=== PATIENT | male | born 1955 | race Caucasian/White ===

== ENCOUNTER 2016-10-08 16:04 | Inpatient (IN) ==
[2016-10-08] MEDS ORDERED: Calcium Gluconate 1,000 MG in D5% in Water 100 ML IVPB ONE (17:06)
[2016-10-08] MEDS ORDERED: Sodium Bicarbonate 50 MEQ/50 ML VIAL IVP ONE (17:08)
[2016-10-08] MEDS ORDERED: Insulin Regular, Human 100 UNIT/ML SQ ONE (17:09)
[2016-10-08] MEDS ORDERED: *HR* Dextrose 50 % in Water (Syg) 50 ML SYRINGE IVP ONE (17:09)
--- NOTE | 2016-10-08 17:12 | Emergency Department Note ---
Disposition Clinical Impression: Hyperkalemia, PEDRITO (acute kidney injury), Metabolic acidosis Diabetes Qualifiers: Diabetes mellitus type: type 2 Diabetes mellitus complication status: with kidney complications Diabetes mellitus complication detail: with chronic kidney disease Diabetes mellitus superintendent greens insulin use: with penitentiary use Chronic kidney disease stage: stage 5, not on chronic dialysis Qualified Code(s): E11.22 - Type 2 diabetes mellitus with diabetic chronic kidney disease Acute on chronic renal failure Qualifiers: Acute renal failure type: unspecified Chronic kidney disease stage: stage 5, not on chronic dialysis Qualified Code(s): N17.9 - Acute kidney failure, unspecified Disposition: Admitted As Inpatient Condition: Serious Time of Disposition: 19:09 General Adult HPI - General Chief complaint: ED Recheck/Abnormal Lab/Rx Stated complaint: Potassium high Time Seen by Provider: 10/08/16 17:01 Source: patient Limitations: no limitations Nursing Notes Reviewed: Yes Vital Signs Reviewed: Yes - History of Present Illness HPI Narrative: Patient sent in by his primary care physician for an increased potassium level. Patient states this is never happened to him before. The only things he can complain of today are a tired feeling. Pain Scale: 3 - Related Data Home Medications Medication Instructions Recorded Confirmed Amlodipine Besylate 10 mg PO DAILY 10/08/16 10/08/16 Atorvastatin [Lipitor] 40 mg PO HS 10/08/16 10/08/16 Cholecalciferol (Vitamin D3) 2,000 unit PO DAILY 10/08/16 10/08/16 [Vitamin D] Exenatide Microspheres [Bydureon] 2 mg SQ QWEEK 10/08/16 10/08/16 Insulin Glargine,Hum.rec.anlog 45 unit SQ QAM 10/08/16 10/08/16 [Basaglar Kwikpen U-100] Lisinopril [Zestril] 5 mg PO DAILY 10/08/16 10/08/16 Metoprolol Succinate 100 mg PO DAILY 10/08/16 10/08/16 Torsemide [Demadex] 10 mg PO DAILY 10/08/16 10/08/16 Ubidecarenone [Co Q-10] 100 mg PO DAILY 10/08/16 10/08/16 hydroCHLOROthiazide 25 mg PO DAILY 10/08/16 10/08/16 [Hydrochlorothiazide] levoFLOXacin [Levofloxacin] 250 mg PO Q48H 10/08/16 10/08/16 Allergies Allergy/AdvReac Type Severity Reaction Status Date / Time No Known Allergies Allergy Verified 10/08/16 16:17 Review of Systems: Patient denies any fevers or chills. He denies any cough. He states he is slightly short of breath but this is been present since he has been diagnosed with pneumonia. It is not changed. He denies any chest pain. He denies any nausea vomiting or diarrhea. He denies any abdominal pain. He denies any urinary symptoms. He denies any hematochezia or melena or hematemesis. He denies any headaches or visual changes. He does report feeling tired today. All systems ED: reviewed and negative except as stated. Past Medical History - Past Medical History Medical history: Reports: diabetes, hyperlipidemia, hypertension, renal disease Psychiatric history: Reports: no psych history - Social History Smoking Status: Former smoker Smokeless Tobacco Status: No Alcohol use: Reports: occasionally Drug use: Reports: none Physical Exam - General Limitations: no limitations General appearance: alert, in no apparent distress - Head Head exam: atraumatic, normocephalic, normal inspection - Eye Eye exam: Present: normal appearance, PERRL, EOMI. Absent: scleral icterus - ENT ENT exam: normal exam, normal oropharynx, mucous membranes moist - Neck Neck exam: Present: normal inspection, full ROM, trachea midline. Absent: tenderness, meningismus, lymphadenopathy - Chest Chest inspection: Present: normal inspection, symmetric chest wall rise - Respiratory Respiratory exam: Present: normal lung sounds bilaterally. Absent: respiratory distress - Cardiovascular Cardiovascular exam: Present: regular rate, normal rhythm, normal heart sounds - Abdominal Exam Abdominal exam: Present: soft, Non-Tender, normal bowel sounds. Absent: tenderness, distention, guarding, rebound, rigidity, organomegaly, Segundo's sign , Rovsing's sign, tenderness at McBurney's Point - Extremities Exam Extremities exam: Present: normal inspection, full ROM, normal capillary refill. Absent: tenderness, pedal edema - Back Exam Back exam: Present: normal inspection, full ROM. Absent: tenderness - Neurological Exam Neurological exam: Present: alert, oriented X3 - Psychiatric Psychiatric exam: Present: normal affect, normal mood - Skin Skin exam: Present: warm, dry, intact, normal color. Absent: rash, cyanosis, diaphoresis, erythema Course Course Narrative: Well-appearing male patient presented to the emergency department after being seen by his primary care physician today and told that his potassium was high. He had routine lab work done and this was found. One week ago he was diagnosed with pneumonia and placed on antibiotics. He states they started with help. He was not admitted for this. He states that over the past week he did have some lower extremity swellings he was placed on Lasix. He states he has been having some issues with his kidney function. So that is being monitored as well. He is not on dialysis. He has never been on dialysis. He is still making urine and has no urinary symptoms. The patient's only complaint today is of a generalized tiredness. He states that he never had a cough with his pneumonia he just had trouble breathing at night. Of note he has some peripheral edema. There is pitting to his lower extremities. Today started him on Lasix over the past week and that is why they are monitoring his creatinine today. It is increased. It was 6 a couple weeks ago and now it is up to 9. He denies any shortness of breath out of the ordinary for him or chest pain at this time. His abdomen is soft and nontender on exam. His lung sounds are clear. Heart sounds are normal. He does have pitting edema to his lower extremities as smoker before. We will admit patient for his hyperkalemia as well as acute on chronic renal failure. We have given him calcium gluconate , insulin, dextrose, Kayexalate, sodium bicarbonate. I have spoken with the hospitalist who is requesting that he be placed in the ICU. I have also spoken with Dr. Pak as the patient has seen Dr. Hanson before. I placed orders that he was requesting as well. Patient is agreeable to admission at this time. - Reevaluation(s) Reevaluation #1: Patient reassessed. He is still resting comfortably in bed. We have admitted patient to the hospital. He has received his calcium gluconate as well as bicarbonate D50 insulin and Kayexalate. He has no complaints at this time. He is agreeable to admission. Time: 18:36 - Consultations Consultation #1: Dr Rice accepted Pt in stable condition. Time: 17:51 Consultation #2: I spoke with Dr. Pak. He is requesting we order a urine sodium and urine creatinine, echo, retroperitoneal ultrasound. I have ordered this for him. Time: 19:38 Vital Signs Temperature 98.2 F 10/08/16 16:17 Pulse Rate 75 10/08/16 16:17 Respiratory Rate 16 10/08/16 16:17 Blood Pressure 187/80 10/08/16 16:17 O2 Sat by Pulse Oximetry 98 10/08/16 16:17 Temperature 97.8 F 10/09/16 00:00 Pulse Rate 87 10/09/16 00:00 Respiratory Rate 16 10/09/16 00:00 Blood Pressure 155/57 10/09/16 00:00 O2 Sat by Pulse Oximetry 98 10/09/16 00:00 Oxygen Delivery Oxygen Delivery Room Air Medical Decision Making - Medical Records Medical records reviewed: Yes I reviewed the patient's medical records. - Lab Data Lab results reviewed: Yes I reviewed the patient's lab results. Result diagrams: 10/08/16 18:38 10/09/16 00:04 Lab Results 10/08/16 10/08/16 10/08/16 Range/Units 18:38 18:38 18:38 WBC 9.8 (4.3-11.1) K/mcL RBC 3.42 L (4.19-5.50) M/mcL Hgb 9.7 L (12.9-16.9) g/dL Hct 29.2 L (37.5-50.1) % MCV 85.4 (83.0-100.0) fL MCH 28.4 (28.0-33.3) pg MCHC 33.2 (31.6-35.5) g/dL RDW 13.6 (11.5-14.5) % Plt Count 262 (140-400) K/mcL MPV 10.8 (9.4-12.4) fL Immature Gran % 0.6 (0-4) % Seg Neutrophils % 69.5 % Lymphocytes % 19.5 % Monocytes % 7.1 % Eosinophils % 3.0 % Basophils % 0.3 % Neutrophils # 6.8 (1.6-8.9) K/mcL Lymphocytes # 1.9 (0.6-4.6) K/mcL Monocytes # 0.7 (0.0-1.3) K/mcL Eosinophils # 0.3 (0.0-0.6) K/mcL Basophils # 0.0 (0.0-0.2) K/mcL PT (9.4-12.1) Seconds INR Sodium (136-145) mEq/L Potassium (3.5-4.5) mEq/L Chloride (98-109) mEq/L Carbon Dioxide (19-29) mEq/L BUN (8-26) mg/dL Creatinine (0.72-1.25) mg/dL Est GFR ( Amer) (> 60) Est GFR (Non-Af Amer) (> 60) BUN/Creatinine Ratio (6-26) Glucose (70-99) mg/dL POC Glucose (58-89) Calculated Osmolality (280-300) Calcium (8.6-10.8) mg/dL Total Bilirubin (0.2-1.2) mg/dL Direct Bilirubin (0.0-0.5) mg/dL Indirect Bilirubin (0.0-1.2) mg/dL AST (5-34) Units/L ALT (0-55) Units/L Alkaline Phosphatase (38-126) Units/L Troponin I 0.21 H* (0-0.03) ng/mL Serum Total Protein (6.0-8.3) g/dL Albumin (3.5-5.0) g/dL Globulin (2.4-3.5) g/dL Albumin/Globulin Ratio (1.1-2.2) Hep Bs Antigen (Nonreactive) Hep Bs Antibody mIU/mL Hepatitis C Ab Screen (Nonreactive) Blood Type A POSITIVE Antibody Screen NEGATIVE 10/08/16 10/08/16 10/08/16 Range/Units 18:38 18:38 18:38 WBC (4.3-11.1) K/mcL RBC (4.19-5.50) M/mcL Hgb (12.9-16.9) g/dL Hct (37.5-50.1) % MCV (83.0-100.0) fL MCH (28.0-33.3) pg MCHC (31.6-35.5) g/dL RDW (11.5-14.5) % Plt Count (140-400) K/mcL MPV (9.4-12.4) fL Immature Gran % (0-4) % Seg Neutrophils % % Lymphocytes % % Monocytes % % Eosinophils % % Basophils % % Neutrophils # (1.6-8.9) K/mcL Lymphocytes # (0.6-4.6) K/mcL Monocytes # (0.0-1.3) K/mcL Eosinophils # (0.0-0.6) K/mcL Basophils # (0.0-0.2) K/mcL PT 12.1 (9.4-12.1) Seconds INR 1.1 Sodium 143 (136-145) mEq/L Potassium 5.6 H D (3.5-4.5) mEq/L Chloride 113 H (98-109) mEq/L Carbon Dioxide 20 (19-29) mEq/L BUN 114 H (8-26) mg/dL Creatinine 9.70 H (0.72-1.25) mg/dL Est GFR ( Amer) 7 L (> 60) Est GFR (Non-Af Amer) 6 L (> 60) BUN/Creatinine Ratio 12 (6-26) Glucose 225 H (70-99) mg/dL POC Glucose (58-89) Calculated Osmolality 339 H (280-300) Calcium 9.3 (8.6-10.8) mg/dL Total Bilirubin 0.4 (0.2-1.2) mg/dL Direct Bilirubin < 0.1 (0.0-0.5) mg/dL Indirect Bilirubin 0.3 (0.0-1.2) mg/dL AST 18 (5-34) Units/L ALT 23 (0-55) Units/L Alkaline Phosphatase 87 (38-126) Units/L Troponin I (0-0.03) ng/mL Serum Total Protein 6.1 (6.0-8.3) g/dL Albumin 2.5 L (3.5-5.0) g/dL Globulin 3.6 H (2.4-3.5) g/dL Albumin/Globulin Ratio 0.7 L (1.1-2.2) Hep Bs Antigen Nonreactive (Nonreactive) Hep Bs Antibody 0.15 mIU/mL Hepatitis C Ab Screen Nonreactive (Nonreactive) Blood Type Antibody Screen 10/08/16 Range/Units 19:35 WBC (4.3-11.1) K/mcL RBC (4.19-5.50) M/mcL Hgb (12.9-16.9) g/dL Hct (37.5-50.1) % MCV (83.0-100.0) fL MCH (28.0-33.3) pg MCHC (31.6-35.5) g/dL RDW (11.5-14.5) % Plt Count (140-400) K/mcL MPV (9.4-12.4) fL Immature Gran % (0-4) % Seg Neutrophils % % Lymphocytes % % Monocytes % % Eosinophils % % Basophils % % Neutrophils # (1.6-8.9) K/mcL Lymphocytes # (0.6-4.6) K/mcL Monocytes # (0.0-1.3) K/mcL Eosinophils # (0.0-0.6) K/mcL Basophils # (0.0-0.2) K/mcL PT (9.4-12.1) Seconds INR Sodium (136-145) mEq/L Potassium (3.5-4.5) mEq/L Chloride (98-109) mEq/L Carbon Dioxide (19-29) mEq/L BUN (8-26) mg/dL Creatinine (0.72-1.25) mg/dL Est GFR ( Amer) (> 60) Est GFR (Non-Af Amer) (> 60) BUN/Creatinine Ratio (6-26) Glucose (70-99) mg/dL POC Glucose 107 H (58-89) Calculated Osmolality (280-300) Calcium (8.6-10.8) mg/dL Total Bilirubin (0.2-1.2) mg/dL Direct Bilirubin (0.0-0.5) mg/dL Indirect Bilirubin (0.0-1.2) mg/dL AST (5-34) Units/L ALT (0-55) Units/L Alkaline Phosphatase (38-126) Units/L Troponin I (0-0.03) ng/mL Serum Total Protein (6.0-8.3) g/dL Albumin (3.5-5.0) g/dL Globulin (2.4-3.5) g/dL Albumin/Globulin Ratio (1.1-2.2) Hep Bs Antigen (Nonreactive) Hep Bs Antibody mIU/mL Hepatitis C Ab Screen (Nonreactive) Blood Type Antibody Screen - EKG Data EKG #1 EKG attestation: Yes I reviewed and interpreted this EKG. EKG results narrative: EKG time 1630. Ventricular rate is 72. Normal sinus rhythm. IL interval is 176. QRS duration is 163 QT is 386. QT is 411. No signs of acute ischemia. There are peaked T waves in leads V2 V3 and V4. EKG #2 EKG attestation: Yes I reviewed and interpreted this EKG. EKG results narrative: Repeat EKG 1832. This was taken after calcium gluconate was given. Normal sinus rhythm at a rate of 79. IL interval is 212. Respirations 25. QT is 379. QTC is 414. There are no changes from previous EKG done earlier today. Attestation Statement - Attestation Attestation: I personally interviewed and examined this patient and my medical decision- making was reviewed with the ED Resident Physician, Dr. Tovar I agree with the documented findings, disposition and treatment plan as described except to the extent set forth below. Patient is a 61-year-old white male with a history of renal insufficiency secondary to diabetes. Patient was contacted by his family doctor and sent in for abnormal labs. Patient was reported to have an elevated potassium as well as worsening renal function with his BUN and creatinine increasing. Patient states that about a week ago he was diagnosed with pneumonia and started on antibiotics for which he feels significantly better home also at that time he was having some lower extremity edema and was started on Lasix. His family doctor was monitoring his blood work and kidney function due to the new Lasix prescription and had labs drawn earlier today. He was contacted and told that his potassium was significantly elevated and that he should go directly to the emergency department. Patient's renal function has increased his serum creatinine has gone from 5.5 to approximately 9 today with an elevation in his BUN to 111. Potassium was 6.8. Patient is asymptomatic here in the emergency department with the exception of stating that he is just been feeling weak overall denies any cough or shortness of breath, no chest pain or pressure, no palpitations, no lightheadedness or syncope. Patient denies any abdominal pain , no history of fluid loss with nausea vomiting or diarrhea and no urinary symptoms. Patient states he does still make urine, he is currently not a dialysis patient and although they have been discussing the potential for starting this for him. Patient has been seeing a set o type operator in regards to his worsening renal status. Patient had an EKG on arrival to the ER showing some peaked T waves. Patient was immediately placed on a electronics supervisor and continuous pulse ox IV saline well was established and he was administered calcium gluconate IV, sodium bicarbonate for his metabolic acidosis, insulin and glucose as well as Kayexalate; all to treat his hyperkalemia. We also repeated a chest x-ray with a recent diagnosis of pneumonia and chest x-ray today is within normal limits. Patient is otherwise hemodynamically stable and asymptomatic resting comfortably at bedside with family. I agree with patient's physical exam findings as documented. We discussed lab results with family and they understand the need for admission at this time. We did contact nephrology consult them from the emergency department and patient was admitted to the hospitalist service for further evaluation and management. We did repeat an EKG which shows a stable T waves no worsening signs of increasing potassium.
[2016-10-08 18:46] LABS: Basophils % 0.3 %; Eosinophils # 0.3 K/mcL (0.0-0.6); Hematocrit 29.2 % (37.5-50.1); Hemoglobin 9.7 g/dL (12.9-16.9); Immature Granulocytes % 0.6 % (0-4); Lymphocytes # 1.9 K/mcL (0.6-4.6); Lymphocytes % 19.5 %; Mean Corpuscular HGB Conc 33.2 g/dL (31.6-35.5); Mean Corpuscular Hemoglobin 28.4 pg (28.0-33.3); Mean Corpuscular Volume 85.4 fL (83.0-100.0); Mean Platelet Volume 10.8 fL (9.4-12.4); Monocytes # 0.7 K/mcL (0.0-1.3); Monocytes % 7.1 %; Neutrophils # 6.8 K/mcL (1.6-8.9); Platelet Count 262 K/mcL (140-400); Red Blood Count 3.42 M/mcL (4.19-5.50); Red Cell Distribution Width 13.6 % (11.5-14.5); Segmented Neutrophils % 69.5 %
[2016-10-08 18:51] LABS: INR 1.1; Prothrombin Time 12.1 Seconds (9.4-12.1)
[2016-10-08 19:08] LABS: Alanine Aminotransferase 23 Units/L (0-55); Albumin 2.5 g/dL (3.5-5.0); Albumin/Globulin Ratio 0.7 (1.1-2.2); Alkaline Phosphatase 87 Units/L (38-126); Aspartate Amino Transferase 18 Units/L (5-34); BUN/Creatinine Ratio 12 (6-26); Bilirubin,Indirect 0.3 mg/dL (0.0-1.2); Bilirubin,Total 0.4 mg/dL (0.2-1.2); Blood Urea Nitrogen 114 mg/dL (8-26); Calcium 9.3 mg/dL (8.6-10.8); Carbon Dioxide 20 mEq/L (19-29); Chloride 113 mEq/L (98-109); Globulin 3.6 g/dL (2.4-3.5); Glucose 225 mg/dL (70-99); Osmolality,Calculated 339 (280-300); Sodium 143 mEq/L (136-145); Total Protein 6.1 g/dL (6.0-8.3); eGFR For African Americans 7 (> 60); eGFR For Non-African Americans 6 (> 60)
[2016-10-08 19:10] LABS: Bilirubin,Direct < 0.1 mg/dL (0.0-0.5); Potassium 5.6 mEq/L (3.5-4.5)
[2016-10-08 19:28] LABS: Hepatitis B Surface Antibody 0.15 mIU/mL; Hepatitis B Surface Antigen Nonreactive (Nonreactive); Hepatitis C Virus Antibody Nonreactive (Nonreactive)
[2016-10-08] MEDS ORDERED: Naloxone 0.4 MG/ML INJ IVP PRN (19:43)
[2016-10-08] MEDS ORDERED: Ondansetron 4 MG/2 ML VIAL IVP PRN (19:43)
[2016-10-08] MEDS ORDERED: Dextrose Gel 15 GM PO PRN ×2 (19:53)
[2016-10-08] MEDS ORDERED: D5% in Water 1,000 ML IVC PRN (19:53)
[2016-10-08] MEDS ORDERED: *HR* Dextrose 50 % in Water (Syg) 50 ML SYRINGE IVP PRN (19:53)
--- NOTE | 2016-10-08 20:24 | Internal Med History&Physical ---
Date of Encounter: 10/08/16 Time of Encounter: 19:45 Assessment and Plan (1) Hyperkalemia Current visit: Yes Status: Acute Admitted for hyperkalemic emergency Initial EKG showed peaked T waves patient received Calcium Gluconate, Bicarb, Dextrose, Insulin, Kayexalate Hyperkalemia improving resolution of peaked T waves at this time clinically asymptomatic will hold home dose of HCTZ, Lisinopril, Toresemide given renal function noted to have acute on chronic renal failure. Patient saw his poker supervisor two months ago and has a follow up next month Dr. Pak aware of the patient and will see in am continue tele monitoring will closely monitor K level (2) Acute on chronic renal failure Current visit: Yes Status: Acute patient will likely be started on HD in am follow up nephrology consultation Qualifiers: Acute renal failure type: unspecified Chronic kidney disease stage: stage 5 , not on chronic dialysis Qualified Code(s): N17.9 - Acute kidney failure, unspecified; N18.5 - Chronic kidney disease, stage 5 (3) Diabetes mellitus Current visit: Yes Status: Chronic continue home insulin dosage added sliding scale insulin algorithm monitor fingerstick and blood glucose accuchecks ACHS ADA diet Qualifiers: Diabetes mellitus type: type 2 Diabetes mellitus complication status: with kidney complications Diabetes mellitus complication detail: with chronic kidney disease Diabetes mellitus fdc insulin use: with fdc use Chronic kidney disease stage: stage 5, not on chronic dialysis Qualified Code( s): E11.22 - Type 2 diabetes mellitus with diabetic chronic kidney disease; N18.5 - Chronic kidney disease, stage 5; Z79.4 - long-term (current) use of insulin (4) Hypertension Current visit: Yes Status: Chronic Noted to be hypertensive but clinically asymptomatic reports of taking home dose of Amlodipine at bedtime, will resume added hydralazine 10mg IV q6h PRN SBP>150 will closely monitor BP holding home dose of Lisinopril, Toresemide, and HCTZ given renal function Qualifiers: Hypertension type: essential hypertension Qualified Code(s): I10 - Essential (primary) hypertension (5) Obesity Current visit: Yes Status: Chronic Qualifiers: Obesity type: unspecified obesity type Obesity severity: non-morbid Qualified Code(s): E66.9 - Obesity, unspecified (6) Peripheral edema Current visit: Yes Status: Acute Bilateral Pitting edema no history of CHF reported will obtain 2D echo initiate diuretic therapy once renal function permits No respiratory distress reported at this time (7) DVT prophylaxis Current visit: Yes Status: Acute Heparin SQ (8) Elevated troponin Current visit: Yes Status: Acute Likely demand ischemia in the setting of Acute renal failure and hypertensive no ST segment changes reported clinically asymptomatic will trend serial TNI f/u 2D echo Internal Medicine - H&P: HPI Chief complaint: sent by PCP for hyperkalemia Admitted From: Home Plans for Post Hospital Care: Home History of present illness: Mr. Walker is a 61 year old male with PMH of DM, HTN, HLD, CKD stage 4 who was sent by PCP for management of hyperkalemia. Patient reported of having generalized weakness and minor cramping in her calves but no other discomfort. Upon arrival to the ER, he was noted to have K of 6.8 along with peaked T waves on EKG. He received calcium gluconate, insulin, sodium bicarbonate, dextrose, and kayexalate in the ER. Repeat K is down to 5.6. He is clinically asymptomatic and denies any distress at this time. Patient seen with family present at bedside. He denies any chest pain, palpitations, shortness of breath , abd pain, n/v, fever, or chills. Denies any muscle cramping at this time. Denies any similar symptoms in the past. Patient's primary poker supervisor is Dr. Hanson, Dr. Pak is aware of the patient and as per his request patient has received NaBicarb, Calcium gluconate, insulin , kayexalate, dextrose. Past Med Surg Social Fam HX - Past Medical History Medical history: diabetes, hyperlipidemia, hypertension, renal disease Psychiatric history: no psych history - Social History Smoking Status: Former smoker Smokeless Tobacco Status: No Alcohol use: occasionally Drug use: none Internal Medicine - H&P: Meds Amlodipine Besylate 10 mg PO DAILY 10/08/16 [History] Atorvastatin [Lipitor] 40 mg PO HS 10/08/16 [History] Cholecalciferol (Vitamin D3) [Vitamin D] 2,000 unit PO DAILY 10/08/16 [History] Exenatide Microspheres [Bydureon] 2 mg SQ QWEEK 10/08/16 [History] Insulin Glargine,Hum.rec.anlog [Paulette Vargas U-100] 45 unit SQ QAM 10/08/16 [History] Lisinopril [Zestril] 5 mg PO DAILY 10/08/16 [History] Metoprolol Succinate 100 mg PO DAILY 10/08/16 [History] Torsemide [Demadex] 10 mg PO DAILY 10/08/16 [History] Ubidecarenone [Co Q-10] 100 mg PO DAILY 10/08/16 [History] hydroCHLOROthiazide [Hydrochlorothiazide] 25 mg PO DAILY 10/08/16 [History] levoFLOXacin [Levofloxacin] 250 mg PO Q48H 10/08/16 [History] Allergies No Known Allergies Allergy (Verified 10/08/16 16:17) All Systems PM: A 10-system review of systems was performed and is negative for pertinent findings except as documented above in the HPI. - Constitutional Constitutional: as per HPI - Constitutional Vitals: Temp Pulse Resp BP Pulse Ox 98.2 F 76 16 172/84 98 10/08/16 16:17 10/08/16 18:42 10/08/16 19:22 10/08/16 19:22 10/08/16 18:42 General appearance: Present: cooperative, A&O X 3, pleasant, no acute distress, obese, answers questions appropriately - Head Head exam: Present: atraumatic, normocephalic - Eye Eye exam: Present: normal appearance, conjuntiva pink, sclera anicteric - Respiratory Respiratory exam: Present: CTAB. Absent: respiratory distress, wheezes - Cardiovascular Cardiovascular exam: Present: RRR, +S1, +S2. Absent: diastolic murmur, gallop, rubs, systolic murmur - GI/Abdominal GI/Abdominal exam: Present: distended (obese), normal bowel sounds, soft, no peritoneal signs. Absent: tenderness - Extremities Exam Extremities exam: Present: pedal edema (1+ pitting edema in bilateral lower extremities), warm, radial pulses palpable and symetrical. Absent: calf tenderness - Neurological Exam Neurological exam: Present: alert, oriented X3 - Psychiatric Psychiatric exam: Present: normal affect, normal mood Internal Med - H&P Results - Labs CBC & Chem 7: 10/08/16 18:38 10/08/16 18:38 Labs: Short CBC 10/08/16 Range/Units 18:38 WBC 9.8 (4.3-11.1) K/mcL Hgb 9.7 L (12.9-16.9) g/dL Hct 29.2 L (37.5-50.1) % Plt Count 262 (140-400) K/mcL Neutrophils # 6.8 (1.6-8.9) K/mcL BMP 10/08/16 18:38 Sodium 143 Potassium 5.6 H D Chloride 113 H Carbon Dioxide 20 BUN 114 H Creatinine 9.70 H Glucose 225 H Calcium 9.3 Cardiac Enzymes 10/08/16 Range/Units 18:38 Troponin I 0.21 H* (0-0.03) ng/mL Liver Function 10/08/16 Range/Units 18:38 Total Bilirubin 0.4 (0.2-1.2) mg/dL Direct Bilirubin < 0.1 (0.0-0.5) mg/dL AST 18 (5-34) Units/L ALT 23 (0-55) Units/L Alkaline Phosphatase 87 (38-126) Units/L Albumin 2.5 L (3.5-5.0) g/dL
[2016-10-08] MEDS: amLODIPine 5 MG TABLET PO SCH (20:31)
[2016-10-08] MEDS: Insulin LISPRO 300 UNITS/3 ML VIAL SQ SCH (20:32)
[2016-10-08] MEDS: Cholecalciferol (D-3) 1,000 UNIT TABLET PO SCH (21:04)
[2016-10-09 00:25] LABS: Calcium 8.6 mg/dL (8.6-10.8); Potassium 4.8 mEq/L (3.5-4.5)
[2016-10-09 05:56] LABS: Basophils % 0.1 %; Eosinophils # 0.2 K/mcL (0.0-0.6); Eosinophils % 2.4 %; Hematocrit 24.9 % (37.5-50.1); Immature Granulocytes % 0.4 % (0-4); Lymphocytes # 1.8 K/mcL (0.6-4.6); Mean Corpuscular HGB Conc 32.5 g/dL (31.6-35.5); Mean Corpuscular Hemoglobin 28.4 pg (28.0-33.3); Mean Corpuscular Volume 87.4 fL (83.0-100.0); Mean Platelet Volume 10.3 fL (9.4-12.4); Monocytes # 0.8 K/mcL (0.0-1.3); Monocytes % 8.1 %; Neutrophils # 6.9 K/mcL (1.6-8.9); Platelet Count 219 K/mcL (140-400); Red Blood Count 2.85 M/mcL (4.19-5.50); Red Cell Distribution Width 13.7 % (11.5-14.5)
[2016-10-09 05:57] LABS: Hemoglobin 8.1 g/dL (12.9-16.9)
[2016-10-09] MEDS: *HR* Heparin 5,000 UNIT/ML VIAL SQ SCH ×2 (06:07→17:54)
[2016-10-09 06:08] LABS: Magnesium 1.5 mg/dL (1.6-2.6); Phosphorous 8.6 mg/dL (2.3-4.7)
--- NOTE | 2016-10-09 08:25 | Internal Med Progress Note ---
Date of Encounter: 10/09/16 Time of Encounter: 08:22 - Assessment and plan (1) Hyperkalemia Current Visit: Yes Status: Acute Assessment and plan: Likely secondary to acute on chronic renal failure. He received treatment with calcium gluconate, IV bicarbonate, insulin and dextrose and Kayexalate. Potassium this morning is 5.0. Repeat EKG late last night shows resolution of peaked T waves. We will continue to monitor potassium level. We will start patient on a low potassium diet. Hold lisinopril. Consult nephrology. (2) Metabolic acidosis Current Visit: Yes Status: Acute Assessment and plan: Likely secondary to acute and chronic renal failure. He received IV bicarbonate. We will consult nephrology, at this time he does not require any continued IV bicarbonate. (3) Acute on chronic renal failure Current Visit: Yes Status: Acute Assessment and plan: Per medical records review baseline creatinine in June 2016 was 6. He follows with outpatient nephrology who has discussed with him the possibility of hemodialysis and he is registered for kidney transplant in [place]. We will consult nephrology. He does not have any evidence of uremia or fluid overload. Kidney ultrasound shows no hydronephrosis. Qualifiers: Acute renal failure type: unspecified Chronic kidney disease stage: stage 5 , not on chronic dialysis Qualified Code(s): N17.9 - Acute kidney failure, unspecified; N18.5 - Chronic kidney disease, stage 5 (4) Diabetes mellitus Current Visit: Yes Status: Chronic Assessment and plan: Glucose level was down to 57 earlier this morning. He takes insulin Lantus at home. At this point I will decrease the Levemir dosing to 50% of his home dose due to worsening renal failure and hyperglycemia. Start insulin sliding scale. Check blood glucose 4 times daily. 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 Continue treatment with amlodipine and metoprolol. Add IV hydralazine as needed for uncontrolled hypertension. Qualifiers: Hypertension type: essential hypertension Qualified Code(s): I10 - Essential (primary) hypertension (6) Peripheral edema Current Visit: Yes Status: Acute Assessment and plan: Follow-up echocardiogram. (7) DVT prophylaxis Current Visit: Yes Status: Acute Assessment and plan: Renally adjusted subcutaneous heparin for prophylaxis. (8) Elevated troponin Current Visit: Yes Status: Acute Assessment and plan: Likely secondary to chronic renal failure. Patient denies chest pain. Troponin elevation is flat and adynamic. - Subjective Interval history: 10/09/2016: The patient was sent by PCP for evaluation and management of elevated potassium. He denies any symptoms prior to admission. Currently remains asymptomatic. His potassium checked outpatient was 6.9. He has a history of chronic kidney disease. Upon initial evaluation his potassium was 6.8 and EKG demonstrated peaked T waves. He received treatment for hyperkalemia. He states that he continues to urinate and he did not notice any changes in urination. He denies chest pain shortness of breath. He has chronic lower extremity swelling which he says is improved from his baseline. - Constitutional Vitals: Temp Pulse Resp BP Pulse Ox 98.1 F 84 20 141/62 97 10/09/16 07:20 10/09/16 08:00 10/09/16 08:00 10/09/16 08:00 10/09/16 08:00 General appearance: Present: cooperative, A&O X 3, pleasant, no acute distress, obese, answers questions appropriately - Eye Eye exam: Present: PERRL, conjuntiva pink, sclera anicteric Pupils: Present: PERRL - Respiratory Respiratory exam: Present: CTAB. Absent: accessory muscle use, rales, rhonchi, wheezes - Cardiovascular Cardiovascular exam: Present: RRR, +S1, +S2, systolic murmur. Absent: diastolic murmur, gallop, rubs - GI/Abdominal GI/Abdominal exam: Present: normal bowel sounds, soft, no peritoneal signs. Absent: distended, tenderness - Extremities Exam Extremities exam: Present: pedal edema (2+ lower extremity pitting edema), warm , radial pulses palpable and symetrical. Absent: calf tenderness, cyanotic - Neurological Exam Neurological exam: Present: CN II-XII intact, oriented X3, no focal deficits. Absent: pronater drift, facial droop, speech deficit - Skin Skin exam: Present: dry, intact Internal Medicine: Result - Labs CBC & Chem 7: 10/09/16 05:48 10/09/16 05:48 Labs: Short CBC 10/09/16 Range/Units 05:48 WBC 9.7 (4.3-11.1) K/mcL Hgb 8.1 L D (12.9-16.9) g/dL Hct 24.9 L (37.5-50.1) % Plt Count 219 (140-400) K/mcL Neutrophils # 6.9 (1.6-8.9) K/mcL BMP 10/09/16 10/09/16 00:04 05:48 Sodium 141 140 Potassium 4.8 H 5.0 H Chloride 113 H 114 H Carbon Dioxide 17 L 17 L BUN 109 H 110 H Creatinine 9.43 H 9.25 H Glucose 57 L 126 H Calcium 8.6 8.0 L Cardiac Enzymes 10/09/16 10/09/16 Range/Units 00:04 05:48 Troponin I 0.24 H* 0.23 H* (0-0.03) ng/mL - ABG Interpretation ABG results: PT/INR, D-dimer PT 12.1 Seconds (9.4-12.1) 10/08/16 18:38 - EKG Interpretation EKG Interpreted by Myself: Yes EKG shows normal: sinus rhythm (72 bpm with peaked T waves and QRS duration of 106.), axis - Impressions Impressions Retroperitoneum Ultrasound 10/08/16 21:30 IMPRESSION: 1. No hydronephrosis. 2. Increased cortical echogenicity is consistent with chronic medical renal disease. 3. The echogenic foci in the kidneys may represent tiny calculi or foci of fat. 4. Postvoid bladder volume is 101 mL. D/ / Tung Conte MD / Tung Conte MD Interpreting Provider: Tung Conte MD Repeat EKG on 10/08/2016 at 8:26 PM reveals normal sinus rhythm 77 bpm QRS duration 108 ms. Peaked T waves have resolved. Consult Discharge Plan - Plan Referrals: Fritz Khan MD [Primary Care Provider] -
[2016-10-09] MEDS: Metoprolol XL (24 HR) Succ 50 MG TAB.ER.24H PO SCH (08:29)
[2016-10-09] MEDS: Insulin LISPRO 300 UNITS/3 ML VIAL SQ SCH ×4 (08:29→21:05)
[2016-10-09] MEDS: (Ubidecarenone [Co Q-10] 100 MG) PO SCH (08:33)
[2016-10-09] MEDS ORDERED: Cholecalciferol (D-3) 1,000 UNIT TABLET PO SCH (09:00)
[2016-10-09] MEDS ORDERED: hydroCHLOROthiazide 25 MG TABLET PO SCH (09:00)
[2016-10-09] MEDS ORDERED: Torsemide 20 MG TABLET PO SCH (09:00)
[2016-10-09] MEDS ORDERED: Insulin DETEMIR 100 UNIT/ML X5UNITS SQ SCH (09:00)
[2016-10-09] MEDS ORDERED: amLODIPine 5 MG TABLET PO SCH (09:00)
--- NOTE | 2016-10-09 09:14 | Nephrology Consult Note ---
Date of Encounter: 10/09/16 Time of Encounter: 09:13 Assessment and Plan (1) ESRD (end stage renal disease) Current Visit: Yes Status: Acute Per Dr. Escalera's note patient has biopsy proven diabetic nephropathy that has been progressing. He is now at a point that he requires renal replacement therapy. We will place order for a tunneled dialysis catheter and initiate dialysis today for hyperkalemia, metabolic acidosis, and volume overload. Social work consult has been placed for outpatient dialysis chair. I have contacted the peritoneal dialysis nurse to talk to the patient about the feasibility of peritoneal dialysis. Nephrocaps been initiated. Patient is replaced on a renal diet. Adjust medications for renal function. (2) Hyperparathyroidism Current Visit: Yes Status: Acute Patient on vitamin D3, we will start calcitriol and attempt to get phosphorus in the normal range. (3) Hyperkalemia Current Visit: Yes Status: Acute Renal diet, and dialysis. He responded to medical management overnight. (4) Metabolic acidosis Current Visit: Yes Status: Acute Should improve with dialysis. (5) Diabetes mellitus Current Visit: Yes Status: Chronic Defer management to primary care team. 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 Should improve with UF. Qualifiers: Hypertension type: essential hypertension Qualified Code(s): I10 - Essential (primary) hypertension (7) Obesity Current Visit: Yes Status: Chronic Outpatient management. Qualifiers: Obesity type: unspecified obesity type Obesity severity: non-morbid Qualified Code(s): E66.9 - Obesity, unspecified (8) Anemia Current Visit: Yes Status: Acute Vitamin B12, folic acid, and iron level have been ordered. We will initiate Aranesp. Monitor for bleeding. Qualifiers: Qualified Code(s): D64.9 - Anemia, unspecified History of Present Illness - Reason for Consult Consult date: 10/09/16 end stage renal disease, hyperkalemia, metabolic acidosis, proteinuria - Chief Complaint ESRD - History of Present Illness Mr. Walker is a 61 yo man with CKD Stage [address] Escalera who presents after his PCP discovered worsening renal failure and hyperkalemia. The patient reports he been in his usual state of health. He works 6 12 hour days a week and has not noticed nausea, vomiting, or a metallic taste his food. He has noticed increased fatigue, increased shortness of breath, and increased heaviness in his lower extremities with exertion. He went to his primary care provider and apparently had labs drawn which revealed a elevated potassium. He went to the ER and was found that his renal function had worsened. He was initiated and his potassium was managed medically. After speaking with the patient he is agreeable to initiating hemodialysis although he is interested in peritoneal dialysis as well. Reviewing outpatient records apparently he was referred to receive a transplant at the [facility] in [place] , however he has not filled out paperwork as of yet. Past Med Surg Social Fam HX - Past Medical History Medical history: diabetes, hyperlipidemia, hypertension, renal disease Psychiatric history: no psych history - Social History Smoking Status: Former smoker Smokeless Tobacco Status: No Alcohol use: occasionally Drug use: none Medications and Allergies Amlodipine Besylate 10 mg PO DAILY 10/08/16 [History] Atorvastatin [Lipitor] 40 mg PO HS 10/08/16 [History] Cholecalciferol (Vitamin D3) [Vitamin D] 2,000 unit PO DAILY 10/08/16 [History] Exenatide Microspheres [Bydureon] 2 mg SQ QWEEK 10/08/16 [History] Insulin Glargine,Hum.rec.anlog [Basaglar Kwikpen U-100] 45 unit SQ QAM 10/08/16 [History] Lisinopril [Zestril] 5 mg PO DAILY 10/08/16 [History] Metoprolol Succinate 100 mg PO DAILY 10/08/16 [History] Torsemide [Demadex] 10 mg PO DAILY 10/08/16 [History] Ubidecarenone [Co Q-10] 100 mg PO DAILY 10/08/16 [History] hydroCHLOROthiazide [Hydrochlorothiazide] 25 mg PO DAILY 10/08/16 [History] levoFLOXacin [Levofloxacin] 250 mg PO Q48H 10/08/16 [History] Allergies No Known Allergies Allergy (Verified 10/08/16 16:17) Review of Systems All Systems: reviewed and no additional remarkable complaints except as stated ( As documented in history of present illness) Exam - Vital Signs Vital signs: Initial Vital Signs Temp Pulse Resp BP Pulse Ox 98.2 F 75 16 187/80 98 10/08/16 16:17 10/08/16 16:17 10/08/16 16:17 10/08/16 16:17 10/08/16 16:17 Vital Signs - Last 8 Hours Temp Pulse Resp BP Pulse Ox 10/09/16 08:00 84 20 141/62 97 10/09/16 07:20 98.1 F 10/09/16 06:00 78 15 173/72 97 10/09/16 05:00 73 15 121/58 97 10/09/16 04:00 98.0 F 79 14 157/71 97 10/09/16 03:20 76 10/09/16 03:00 76 14 155/87 97 10/09/16 02:00 80 14 156/71 97 Intake and Output 10/08/16 10/09/16 10/09/16 23:59 07:59 15:59 Intake Total 1999 Output Total 500 / 500 Balance 1500 / 1500 Intake: Oral 1999 Output: Catheter 500 / 500 Other: Stool Size Large Stool Consistency liquid # Bowel Movements 1 Blood Glucose* 157 - General Appearance General appearance: well-developed, well-nourished EENT: ATNC Neck: supple Additional Comments: Faint crackles in the bilateral bases otherwise clear to auscultation Cardiology: no rub, edema (3+ in bilateral lower extremities), regular rate, regular rhythm Gastrointestinal: normoactive bowel sounds, no tenderness Integumentary: warm and dry Neurologic: alert and oriented x3 Musculoskeletal: no cyanosis Psychiatric: mood/affect appropriate Results - Lab Results 10/09/16 05:48 10/09/16 05:48 Most recent lab results Calcium 8.0 mg/dL (8.6-10.8) L 10/09/16 05:48 Phosphorus 8.6 mg/dL (2.3-4.7) H 10/09/16 05:48 Magnesium 1.5 mg/dL (1.6-2.6) L 10/09/16 05:48 Consult Discharge Plan - Plan Referrals: Fritz Khan MD [Primary Care Provider] -
[2016-10-09] MEDS: Insulin DETEMIR 100 UNIT/ML X5UNITS SQ SCH ×2 (09:39→22:44)
[2016-10-09] MEDS ORDERED: 0.9 % Sodium Chloride 250 ML IVC PRN (11:05)
[2016-10-09] MEDS ORDERED: 0.9 % Sodium Chloride 1,000 ML PRIME SCH (11:15)
--- NOTE | 2016-10-09 11:23 | Electrocardiograph Report ---
[address] [place] [address] Test Date: 2016-10-08 Pat Name: Lamin Walker Department: 102 Room: [facility] Gender: Telecommunications Administrator: : 1955 Requested By: Brad Grey Order Number: [id number] Reading MD: Luis Evans MD Measurements Intervals [place] Rate: 79 P: 52 MN: 212 QRS: -14 QRSD: 105 T: 77 QT: 379 QTc: 414 Interpretive Statements SINUS RHYTHM WITH FIRST DEGREE AV BLOCK LEFT ATRIAL ENLARGEMENT TALL T-WAVES, SUGGESTS HYPERKALEMIA Electronically Signed On 10-09-2016 11:22:21 EDT by Luis Evans MD
[2016-10-09] MEDS: Calcium Acetate 667 MG CAPSULE PO SCH ×2 (12:23→17:54)
[2016-10-09] MEDS ORDERED: Heparin 1,000 UNITS/500 mL NS 500 ML ONE (13:34)
[2016-10-09] MEDS ORDERED: *HR* FentaNYL (PF) 100 MCG/2 ML VIAL IVP PRN (14:02)
[2016-10-09] MEDS ORDERED: *HR* Midazolam HCl 2 MG/2 ML VIAL IVP PRN (14:02)
[2016-10-09] MEDS ORDERED: ceFAZolin 2,000 MG in D5% in Water (Mini-Bag+) 100 ML IVPB ONE (14:03)
[2016-10-09] MEDS ORDERED: 0.9 % Sodium Chloride 500 ML ONE (14:23)
[2016-10-09 14:36] LABS: Transferrin 204 mg/dL (174-364)
--- NOTE | 2016-10-09 14:49 | Pre-Sedation Evaluation ---
Pre-sedation evaluation - Pre-sedation checklist Date of procedure: 10/09/16 Procedure: permacath placement Recent Vitals: Last Vital Signs Temp 98.1 F 10/09/16 11:28 Pulse 85 10/09/16 14:46 Resp 15 10/09/16 14:46 BP 138/64 10/09/16 14:46 Pulse Ox 99 10/09/16 14:46 H&P (including ROS) documented in medical record: Yes Previous reaction to sedatives/anesthetics: No Dietary Status: NPO 6 hours prior to procedure Dentition: full dentition ASA Classification *see protocol: CLASS II-Mild systemic disease Plan of Care: Pt appropriate candidate for procedure/moderate/conscious sedation , Risks/benefits of procedure/sedation discussed w/ patient/family
--- NOTE | 2016-10-09 14:50 | IR Procedure Note ---
Date of procedure: 10/09/16 Consent Obtained: Written consent Timeout: Correct patient and procedure verified, Time out performed, Skin prep completed Local anesthetic: Lidocaine 1% Indications: CRF Procedure Performed: Permacath placement Results/Findings: RIJ 14F 28 cm Vishal-Split TDC placement Complications: None; Tolerated procedure well (Monitor on floor)
[2016-10-09 15:01] LABS: Bilirubin,Urine Negative (Negative); Blood,Urine Small (Negative); Clarity,Urine Clear (Clear); Color,Urine Yellow (Yellow); Glucose,Urine (UA) 100 mg/dL (Normal); Ketones,Urine Negative (Negative); Leukocyte Esterase,Urine Negative (Negative); Nitrite,Urine Negative (Negative); Protein,Urine >=1000 mg/dL (Neg-Trace); Specific Gravity,Urine 1.017 (1.010-1.025); Urobilinogen,Urine Normal (Normal)
[2016-10-09 15:07] LABS: Squamous Epithelial Cell,Urine Many per lpf (None-Few)
[2016-10-09 15:08] LABS: Bacteria,Urine None Seen per hpf (None-Few); Hyaline Casts,Urine Few per lpf (None-Few)
[2016-10-09 15:22] LABS: Amorphous Sediment,Urine Few (Few); Mucus,Urine Many (Few)
[2016-10-09 16:09] LABS: % Iron Saturation 16 % (20-55); Iron 45 mcg/dL (65-175)
[2016-10-09 16:28] LABS: Ferritin 52 ng/ml (22-275)
[2016-10-09 16:37] LABS: Folate 8.3 ng/mL (7.0-31.4)
[2016-10-09] MEDS ORDERED: 0.9 % Sodium Chloride 1,000 ML ONE (16:58)
--- NOTE | 2016-10-09 17:44 | Electrocardiograph Report ---
[address] [place], [place] [address] Test Date: 2016-10-08 Pat Name: Lamin Walker Department: 104 Room: 2A32 Gender: M Mandarin Speaking Nanny: : 1955 Requested By: Nurys Tovar Order Number: [id number] Reading MD: Marcie Dunn Measurements Intervals Trail Rate: 72 P: 41 UT: 176 QRS: -13 QRSD: 106 T: 64 QT: 386 QTc: 411 Interpretive Statements SINUS RHYTHM POSSIBLE LEFT ATRIAL ENLARGEMENT POSSIBLE LEFT VENTRICULAR HYPERTROPHY TALL T-WAVES, SUGGESTS HYPERKALEMIA Electronically Signed On 10-09-2016 17:42:54 EDT by Marcie Dunn
--- NOTE | 2016-10-09 17:45 | Electrocardiograph Report ---
[place] [address] Test Date: 2016-10-08 Pat Name: Lamin Walker Department: 109 Room: 2A32 Gender: M Laminator [employer]ed [employer] Boards: : 1955 Requested By: Kesha Segovia Order Number: [id number] Reading MD: Marcie Dunn Measurements Intervals [place] Rate: 77 P: 45 [place]: 198 QRS: -13 QRSD: 108 T: 58 QT: 383 QTc: 414 Interpretive Statements SINUS RHYTHM POSSIBLE LEFT ATRIAL ENLARGEMENT POSSIBLE LEFT VENTRICULAR HYPERTROPHY Electronically Signed On 10-09-2016 17:44:03 EDT by Marcie Dunn
[2016-10-09] MEDS: Cholecalciferol (D-3) 1,000 UNIT TABLET PO SCH (17:54)
[2016-10-09] MEDS: amLODIPine 5 MG TABLET PO SCH (17:54)
[2016-10-09] MEDS ORDERED: Acetaminophen 325 MG TABLET PO PRN (23:13)
[2016-10-10 05:42] LABS: Basophils % 0.3 %; Eosinophils # 0.2 K/mcL (0.0-0.6); Hematocrit 25.3 % (37.5-50.1); Hemoglobin 8.4 g/dL (12.9-16.9); Immature Granulocytes % 0.4 % (0-4); Lymphocytes # 2.9 K/mcL (0.6-4.6); Lymphocytes % 27.7 %; Mean Corpuscular HGB Conc 33.2 g/dL (31.6-35.5); Mean Corpuscular Hemoglobin 28.9 pg (28.0-33.3); Mean Corpuscular Volume 86.9 fL (83.0-100.0); Mean Platelet Volume 11.5 fL (9.4-12.4); Monocytes # 1.1 K/mcL (0.0-1.3); Monocytes % 10.2 %; Neutrophils # 6.3 K/mcL (1.6-8.9); Platelet Count 248 K/mcL (140-400); Red Blood Count 2.91 M/mcL (4.19-5.50); Segmented Neutrophils % 59.4 %
[2016-10-10] MEDS: *HR* Heparin 5,000 UNIT/ML VIAL SQ SCH ×2 (05:55→17:09)
[2016-10-10 06:09] LABS: Calcium 8.4 mg/dL (8.6-10.8); Potassium 4.3 mEq/L (3.5-4.5)
[2016-10-10] MEDS: Insulin LISPRO 300 UNITS/3 ML VIAL SQ SCH ×4 (07:10→22:09)
--- NOTE | 2016-10-10 07:59 | Nephrology Progress Note ---
Date of Encounter: 10/10/16 Time of Encounter: 08:50 - Assessment and Plan (1) ESRD (end stage renal disease) Current Visit: Yes Status: Acute Incipient/newly declared ESRD. Today will day 2 of 3 for HD initiation. Pending chair placement/admissions to an outpatient Dialysis unit. Permacath in place I received a face to face sign-out from my colleague Dr. Pak. (2) Hyperkalemia Current Visit: Yes Status: Acute (3) Hyperparathyroidism Current Visit: Yes Status: Chronic (4) Hypertension Current Visit: Yes Status: Chronic Qualifiers: Hypertension type: essential hypertension Qualified Code(s): I10 - Essential (primary) hypertension Subjective Principal diagnosis: Progression to ESRD Interval history: Pt was s/e earlier today in his exam room. He did not report major pain at the Permacath site (placed yesterday). He asked me several questions and I spent >50 % of my visit time counseling and educating him about ESRD, HD vs PD and steps to help avoid infection of the Permacath. He did not affirm N/V/D or CP. Objective - Vital Signs Vital signs: Vital Signs Temp Pulse Resp BP Pulse Ox 10/10/16 06:50 98 F 72 16 130/57 96 10/10/16 06:03 98 F 73 14 117/55 99 10/10/16 01:10 98 F 79 15 132/77 96 10/09/16 20:22 97.8 F 75 16 166/68 95 10/09/16 17:51 96 10/09/16 17:25 98 F 17 132/76 10/09/16 17:15 113/60 10/09/16 17:00 118/53 10/09/16 16:45 121/59 10/09/16 16:30 112/54 10/09/16 16:15 105/52 10/09/16 16:00 107/56 10/09/16 15:45 99/53 10/09/16 15:30 129/64 10/09/16 15:15 98 F 17 140/67 10/09/16 14:51 98 10/09/16 14:46 85 15 138/64 99 10/09/16 14:41 82 15 158/75 100 10/09/16 14:37 83 16 158/76 100 10/09/16 14:01 80 18 151/72 98 10/09/16 13:44 149/68 10/09/16 12:02 84 19 149/68 97 10/09/16 11:28 98.1 F 10/09/16 10:00 84 19 151/62 97 10/09/16 08:00 84 20 141/62 97 Intake and Output 10/09/16 10/09/16 10/10/16 15:59 23:59 07:59 Intake Total 840 / 840 0 / 0 Output Total 300 / 300 1600 / 1600 Balance 540 / 540 -1600 / -1600 Intake: IV Fluids 0 / 0 Ancef 2,000 MG In 0 / 0 Dextrose 5% (Minibag+) 100 ML 100 ML @ 200 mls/ hr IVPB PREOP ONE Rx#: [id number] Oral 240 / 240 0 / 0 Intake, Rinseback and 600 / 600 Flushes Output: Urine 300 / 300 0 / 0 Total Dialysis (HD) 1600 / 1600 Output Other: Meal Breakfast Percent of Meal Consumed 100% Stool Size Moderate Stool Consistency loose Blood Glucose* 99 152 105 Hemodialysis Net Fluid 394 1000 Removed (mL) - General Appearance General appearance: Present: well-developed, well-nourished, appears started age EENT: Present: ATNC, PERRL, mucous membranes moist Neck: Present: supple Respiratory: Present: clear Cardiology: Present: edema (1-2+ pretibial pitting edema b/l ), regular rate, regular rhythm, normal S1, normal S2 Dialysis Vascular Access: Venous Catheter (Right sided Permcath with dressing C/ D/I) Gastrointestinal: Present: normoactive bowel sounds, no tenderness, no guarding Integumentary: Present: no rash, warm and dry Neurologic: Present: no focal deficit, no asterixis, alert and oriented x3 Musculoskeletal: Present: no deformities, no erythema, no cyanosis Psychiatric: Present: mood/affect appropriate, cooperative - Lab 10/10/16 04:47 10/10/16 04:47 Most recent lab results Calcium 8.4 mg/dL (8.6-10.8) L 10/10/16 04:47 Phosphorus 8.6 mg/dL (2.3-4.7) H 10/09/16 05:48 Magnesium 1.5 mg/dL (1.6-2.6) L 10/09/16 05:48 Urine Creatinine 82 mg/dL 10/09/16 14:40 Urine Sodium 58.0 mEq/L 10/09/16 14:40 Consult Discharge Plan - Plan Referrals: Fritz Khan MD [Primary Care Provider] - 10/17/16 4:15 pm
[2016-10-10] MEDS: (Ubidecarenone [Co Q-10] 100 MG) PO SCH (08:01)
[2016-10-10] MEDS: Renal Vitamin 1 MG CAPSULE PO SCH (08:10)
[2016-10-10] MEDS: Calcium Acetate 667 MG CAPSULE PO SCH ×3 (08:10→17:09)
[2016-10-10] MEDS: Insulin DETEMIR 100 UNIT/ML X5UNITS SQ SCH ×2 (08:11→22:08)
[2016-10-10] MEDS ORDERED: 0.9 % Sodium Chloride 250 ML IVC PRN (08:20)
[2016-10-10] MEDS ORDERED: 0.9 % Sodium Chloride 1,000 ML PRIME SCH (08:30)
[2016-10-10] MEDS ORDERED: 0.9 % Sodium Chloride 1,000 ML ONE (11:46)
[2016-10-10] MEDS: Metoprolol XL (24 HR) Succ 50 MG TAB.ER.24H PO SCH (13:30)
[2016-10-10 13:42] LABS: Hepatitis A Antibody IgM Nonreactive (Nonreactive); Hepatitis B Core IgM Nonreactive (Nonreactive); Hepatitis B Surface Antibody 0.49 mIU/mL; Hepatitis C Virus Antibody Nonreactive (Nonreactive)
[2016-10-10 14:35] LABS: Hepatitis B Surface Antigen Nonreactive (Nonreactive)
[2016-10-10] MEDS: amLODIPine 5 MG TABLET PO SCH (17:09)
[2016-10-10] MEDS: Cholecalciferol (D-3) 1,000 UNIT TABLET PO SCH (17:09)
--- NOTE | 2016-10-10 19:37 | Internal Med Progress Note ---
Date of Encounter: 10/10/16 Time of Encounter: 10:00 - Assessment and plan (1) Hyperkalemia Current Visit: Yes Status: Acute Assessment and plan: 10/10/2016: Appreciate nephrology input. Hypercalcemia to be managed with hemodialysis.. 10/09/2016: Likely secondary to acute on chronic renal failure. He received treatment with calcium gluconate, IV bicarbonate, insulin and dextrose and Kayexalate. Potassium this morning is 5.0. Repeat EKG late last night shows resolution of peaked T waves. We will continue to monitor potassium level. We will start patient on a low potassium diet. Hold lisinopril. Consult nephrology. (2) Metabolic acidosis Current Visit: Yes Status: Acute Assessment and plan: Likely secondary to acute and chronic renal failure. He received IV bicarbonate. We will consult nephrology, at this time he does not require any continued IV bicarbonate. (3) Acute on chronic renal failure Current Visit: Yes Status: Acute Assessment and plan: 10/10/2016: Start hemodialysis per nephrology. Renal diet. Supplemental calcium and vitamin D. Phosphate binder. 10/09/2016: Per medical records review baseline creatinine in June 2016 was 6. He follows with outpatient nephrology who has discussed with him the possibility of hemodialysis and he is registered for kidney transplant in [place]. We will consult nephrology. He does not have any evidence of uremia or fluid overload. Kidney ultrasound shows no hydronephrosis. Qualifiers: Acute renal failure type: unspecified Chronic kidney disease stage: stage 5 , not on chronic dialysis Qualified Code(s): N17.9 - Acute kidney failure, unspecified; N18.5 - Chronic kidney disease, stage 5 (4) Diabetes mellitus Current Visit: Yes Status: Chronic Assessment and plan: Glucose level was down to 57 earlier this morning. He takes insulin Lantus at home. At this point I will decrease the Levemir dosing to 50% of his home dose due to worsening renal failure and hyperglycemia. Start insulin sliding scale. Check blood glucose 4 times daily. Qualifiers: Diabetes mellitus type: type 2 Diabetes mellitus complication status: with kidney complications Diabetes mellitus complication detail: with chronic kidney disease Diabetes mellitus fpc insulin use: with parts counterman use Chronic kidney disease stage: stage 5, not on chronic dialysis Qualified Code( s): E11.22 - Type 2 diabetes mellitus with diabetic chronic kidney disease; N18.5 - Chronic kidney disease, stage 5; Z79.4 - half-way (current) use of insulin (5) Hypertension Current Visit: Yes Status: Chronic Assessment and plan: Continue to hold lisinopril and HCTZ. Continue treatment with amlodipine and metoprolol. Add IV hydralazine as needed for uncontrolled hypertension. Qualifiers: Hypertension type: essential hypertension Qualified Code(s): I10 - Essential (primary) hypertension (6) Peripheral edema Current Visit: Yes Status: Acute Assessment and plan: Follow-up echocardiogram: findings suggestive of LVOT obstruc with mitral regurgitation, aortic insufficiency and tricuspid regurgitation. I will repeat echocardiogram with dedicated LVOT views per cardiology recommendations. (7) DVT prophylaxis Current Visit: Yes Status: Acute Assessment and plan: Renally adjusted subcutaneous heparin for prophylaxis. (8) Elevated troponin Current Visit: Yes Status: Acute Assessment and plan: Likely secondary to chronic renal failure. Patient denies chest pain. Troponin elevation is flat and adynamic. - Subjective Interval history: 10/10/2016: Patient started on dialysis yesterday. He tolerated this well. Currently undergoing hemodialysis, denies nausea generalized weakness chills and chest pain. Denies shortness of breath. 10/09/2016: The patient was sent by PCP for evaluation and management of elevated potassium. He denies any symptoms prior to admission. Currently remains asymptomatic. His potassium checked outpatient was 6.9. He has a history of chronic kidney disease. Upon initial evaluation his potassium was 6.8 and EKG demonstrated peaked T waves. He received treatment for hyperkalemia. He states that he continues to urinate and he did not notice any changes in urination. He denies chest pain shortness of breath. He has chronic lower extremity swelling which he says is improved from his baseline. - Constitutional Vitals: Temp Pulse Resp BP Pulse Ox 98.3 F 80 18 115/62 94 10/10/16 15:55 10/10/16 15:55 10/10/16 15:55 10/10/16 15:55 10/10/16 15:55 General appearance: Present: cooperative, A&O X 3, pleasant, no acute distress, obese, answers questions appropriately - Eye Eye exam: Present: PERRL, conjuntiva pink, sclera anicteric Pupils: Present: PERRL - Respiratory Respiratory exam: Present: CTAB. Absent: accessory muscle use, rales, rhonchi, wheezes - Cardiovascular Cardiovascular exam: Present: +S1, +S2, systolic murmur. Absent: diastolic murmur, gallop, rubs - GI/Abdominal GI/Abdominal exam: Present: normal bowel sounds, soft, no peritoneal signs. Absent: distended, tenderness - Extremities Exam Extremities exam: Present: pedal edema, warm, radial pulses palpable and symetrical. Absent: calf tenderness, cyanotic - Neurological Exam Neurological exam: Present: CN II-XII intact, oriented X3, no focal deficits. Absent: pronater drift, facial droop, speech deficit - Skin Skin exam: Present: dry, intact Internal Medicine: Result - Labs CBC & Chem 7: 10/10/16 04:47 10/10/16 04:47 Labs: Short CBC 10/10/16 Range/Units 04:47 WBC 10.6 (4.3-11.1) K/mcL Hgb 8.4 L (12.9-16.9) g/dL Hct 25.3 L (37.5-50.1) % Plt Count 248 (140-400) K/mcL Neutrophils # 6.3 (1.6-8.9) K/mcL BMP 10/10/16 04:47 Sodium 142 Potassium 4.3 Chloride 110 H Carbon Dioxide 21 BUN 78 H D Creatinine 7.77 H Glucose 50 L Calcium 8.4 L - ABG Interpretation ABG results: PT/INR, D-dimer PT 12.1 Seconds (9.4-12.1) 10/08/16 18:38 Consult Discharge Plan - Plan Referrals: Fritz Khan MD [Primary Care Provider] - 10/17/16 4:15 pm
[2016-10-11 05:05] LABS: Basophils % 0.3 %; Eosinophils # 0.2 K/mcL (0.0-0.6); Eosinophils % 1.9 %; Hematocrit 26.2 % (37.5-50.1); Hemoglobin 8.6 g/dL (12.9-16.9); Immature Granulocytes % 0.3 % (0-4); Lymphocytes # 2.4 K/mcL (0.6-4.6); Lymphocytes % 23.6 %; Mean Corpuscular HGB Conc 32.8 g/dL (31.6-35.5); Mean Corpuscular Hemoglobin 28.7 pg (28.0-33.3); Mean Corpuscular Volume 87.3 fL (83.0-100.0); Mean Platelet Volume 11.5 fL (9.4-12.4); Monocytes % 10.1 %; Neutrophils # 6.5 K/mcL (1.6-8.9); Platelet Count 231 K/mcL (140-400); Red Cell Distribution Width 13.6 % (11.5-14.5); Segmented Neutrophils % 63.8 %
[2016-10-11 05:21] LABS: Calcium 8.5 mg/dL (8.6-10.8); Potassium 4.9 mEq/L (3.5-4.5)
[2016-10-11] MEDS: *HR* Heparin 5,000 UNIT/ML VIAL SQ SCH (06:16)
[2016-10-11] MEDS ORDERED: 0.9 % Sodium Chloride 250 ML IVC PRN (08:03)
[2016-10-11] MEDS: Insulin LISPRO 300 UNITS/3 ML VIAL SQ SCH ×2 (08:05→11:58)
[2016-10-11] MEDS: Renal Vitamin 1 MG CAPSULE PO SCH (08:11)
[2016-10-11] MEDS: Calcium Acetate 667 MG CAPSULE PO SCH ×2 (08:11→13:17)
[2016-10-11] MEDS ORDERED: 0.9 % Sodium Chloride 1,000 ML PRIME SCH (08:15)
[2016-10-11] MEDS: Insulin DETEMIR 100 UNIT/ML X5UNITS SQ SCH (08:18)
--- NOTE | 2016-10-11 09:18 | Nephrology Progress Note ---
Date of Encounter: 10/11/16 Time of Encounter: 09:15 - Assessment and Plan (1) ESRD (end stage renal disease) Status: Acute Incipient/newly declared ESRD. Today will day 3 of 3 for HD initiation, so I've ordered faster Qb and Qd for improved flows/clearance. Anemia of CKD: he received EPO here but this will be arranged at the HD unit. CKD-BMP with SHPT and hyperphosphatemia: cont Calcitriol (for now) and Calcium acetate for hyperphosphatemia Renal diet Access: Rt Permacath in good use. He would like to be evaluated for PD, which we can arrange as an outpt at some point. Chair time has been arranged (see notes). Okay to D/C today after HD for HD on Thursday at [facility] in [place]. Since he saw Dr. Hanson in the clinic, his primary fruit checker will be Dr. Hanson. (2) Hyperkalemia Status: Acute Improving Renal diet. (3) Hyperparathyroidism Status: Chronic Agree with calcitriol (4) Hypertension Status: Chronic Would not resume HCTZ at discharge (it's listed as home Rx), which this is an ineffect diuretic in stages IV and V of CKD. Qualifiers: Hypertension type: essential hypertension Qualified Code(s): I10 - Essential (primary) hypertension Subjective Principal diagnosis: Progression to ESRD Interval history: Pt was s/e earlier today in the dialysis unit. He did not affirm N/V/D or CP. Yesterday the document successfully establishing a dialysis chair time. Objective - Vital Signs Vital signs: Vital Signs Temp Pulse Resp BP Pulse Ox 10/11/16 07:35 98.6 F 75 16 144/65 95 10/11/16 04:07 98.2 F 70 16 137/66 94 10/11/16 00:33 98.5 F 79 16 132/58 95 10/10/16 20:06 98.4 F 74 16 119/64 96 10/10/16 15:55 98.3 F 80 18 115/62 94 10/10/16 12:55 98.3 F 74 16 149/64 96 10/10/16 12:40 97.5 F L 18 136/56 10/10/16 12:25 118/59 10/10/16 12:10 123/63 10/10/16 11:52 131/70 10/10/16 11:40 137/71 10/10/16 11:25 123/61 10/10/16 11:10 128/65 10/10/16 10:55 146/63 10/10/16 10:40 150/71 10/10/16 10:25 157/77 10/10/16 10:10 149/107 10/10/16 09:55 98.3 F 18 136/64 Intake and Output 10/10/16 10/11/16 10/11/16 23:59 07:59 15:59 Other: Blood Glucose* 117 64 - General Appearance Exam: General appearance: Present: well-developed, well-nourished, appears started age EENT: Present: ATNC, PERRL, mucous membranes moist Neck: Present: supple Respiratory: Present: clear Cardiology: Present: edema (1+ pretibial pitting edema b/l ), regular rate, regular rhythm, normal S1, normal S2 Dialysis Vascular Access: Venous Catheter (Right sided Permcath with dressing C/ D/I) Gastrointestinal: Present: normoactive bowel sounds, no tenderness, no guarding Integumentary: Present: no rash, warm and dry Neurologic: Present: no focal deficit, no asterixis, alert and oriented x3 Musculoskeletal: Present: no deformities, no erythema, no cyanosis Psychiatric: Present: mood/affect appropriate, cooperative - Lab 10/11/16 04:23 10/11/16 04:23 Most recent lab results Calcium 8.5 mg/dL (8.6-10.8) L 10/11/16 04:23 Phosphorus 8.6 mg/dL (2.3-4.7) H 10/09/16 05:48 Magnesium 1.5 mg/dL (1.6-2.6) L 10/09/16 05:48 Urine Creatinine 82 mg/dL 10/09/16 14:40 Urine Sodium 58.0 mEq/L 10/09/16 14:40 Consult Discharge Plan - Plan Instructions: Calcitriol (By mouth), Hemodialysis (DC), Diabetes Mellitus Type 2 in Adults (DC), Chronic Hypertension (DC) Additional Instructions: Follow-up with PCP in 1-2 weeks. You will be due for hemodialysis every Thursday and Thursday. Follow-up with fruit checker in 1 week. Please call for an appointment with [facility]. Your echocardiogram revealed some thickening of the heart muscle which she should follow-up with cardiology in the office within the next 2 weeks. Referrals: Fritz Khan MD [Primary Care Provider] - 10/17/16 4:15 pm Sam Donahue DO [Partnered Physician] - Prescriptions: Calcitriol [Rocaltrol] 0.25 mcg PO DAILY #30 capsule Renal Vitamin [Renal Caps Softgel] 1 mg PO DAILY #30 capsule
[2016-10-11] MEDS ORDERED: 0.9 % Sodium Chloride 1,000 ML ONE (09:45)
[2016-10-11] MEDS: Metoprolol XL (24 HR) Succ 50 MG TAB.ER.24H PO SCH (13:17)
[2016-10-11 13:19] VITALS: BP 174/67
--- NOTE | 2016-10-11 14:20 | Discharge Summary ---
Date of Encounter: 10/11/16 Time of Encounter: 14:16 - Discharge Diagnosis (1) Hyperkalemia Priority: Secondary Status: Acute (2) Metabolic acidosis Priority: Secondary Status: Acute (3) Acute on chronic renal failure Priority: Primary Status: Acute Qualifiers: Acute renal failure type: unspecified Chronic kidney disease stage: stage 5 , not on chronic dialysis Qualified Code(s): N17.9 - Acute kidney failure, unspecified; N18.5 - Chronic kidney disease, stage 5 (4) Diabetes mellitus Priority: Secondary Status: Chronic Qualifiers: Diabetes mellitus type: type 2 Diabetes mellitus complication status: with kidney complications Diabetes mellitus complication detail: with chronic kidney disease Diabetes mellitus medical terminologist insulin use: with medical terminologist use Chronic kidney disease stage: stage 5, not on chronic dialysis Qualified Code( s): E11.22 - Type 2 diabetes mellitus with diabetic chronic kidney disease; N18.5 - Chronic kidney disease, stage 5; Z79.4 - remote computer terminal operator (current) use of insulin (5) Hypertension Priority: Secondary Status: Chronic Qualifiers: Hypertension type: essential hypertension Qualified Code(s): I10 - Essential (primary) hypertension (6) Peripheral edema Priority: Secondary Status: Acute (7) DVT prophylaxis Priority: Secondary Status: Acute (8) Elevated troponin Priority: Secondary Status: Acute (9) Left ventricular outflow tract obstruction Priority: Secondary Status: Acute - Discharge Medications Prescriptions: Calcitriol [Rocaltrol] 0.25 mcg PO DAILY #30 capsule Renal Vitamin [Renal Caps Softgel] 1 mg PO DAILY #30 capsule Home Medications: Amlodipine Besylate 10 mg PO DAILY 10/08/16 [History] Atorvastatin [Lipitor] 40 mg PO HS 10/08/16 [History] Cholecalciferol (Vitamin D3) [Vitamin D3] 2,000 unit PO DAILY 10/08/16 [History] Exenatide Microspheres [Bydureon] 2 mg SQ QWEEK 10/08/16 [History] Metoprolol Succinate 100 mg PO DAILY 10/08/16 [History] Ubidecarenone [Co Q-10] 100 mg PO DAILY 10/08/16 [History] hydroCHLOROthiazide [Hydrochlorothiazide] 25 mg PO DAILY 10/08/16 [History] levoFLOXacin [Levofloxacin] 250 mg PO Q48H 10/08/16 [History] Calcitriol [Rocaltrol] 0.25 mcg PO DAILY #30 capsule 10/11/16 [Rx] Insulin Glargine,Hum.rec.anlog [Basaglar Kwikpen U-100] 30 unit SQ QAM #0 10/11 [Rx] Renal Vitamin [Renal Caps Softgel] 1 mg PO DAILY #30 capsule 10/11/16 [Rx] Allergies/Adverse Reactions: Allergies No Known Allergies Allergy (Verified 10/08/16 16:17) Procedures/tests Complete & Pending: Procedures Performed prior 72 hours Category Date Time Status IR cvc insrt tunnel wo prt/direct sales professional [IR] Routine IR 10/09/16 Completed IR us guide needle place [IR] Routine IR 10/09/16 Completed EKG [ECG 12 lead ECG] [ECG] Stat Y 10/08/16 20:08 Completed EV limited echocardiogram Routine Y 10/10/16 19:39 Completed Date of admission: 10/08/16 19:43 Primary care physician: Fritz Khan MD Consults: 10/09/16 09:07 Consult to Interventional Radiology [CONS] Routine Consulting Provider: Radiology Interventional Cols Reason for Consult: consult for tunneled dialysis catheter. Call Completed: No Consult to All Around Patternmaker [CONS] Routine Reason for SW Consult: patient needs a dialysis unit (new start dialysis). 10/09/16 11:15 Consult to Dialysis [CONS] ONCE 10/10/16 08:30 Consult to Dialysis [CONS] ONCE 10/11/16 08:15 Consult to Dialysis [CONS] ONCE - Patient Status Disposition: Home, Self-Care Condition: Serious Functional capacity at discharge: independent ambulation Overall status at discharge: patient is back to baseline - Discharge Instructions Instructions: Calcitriol (By mouth), Hemodialysis (DC), Diabetes Mellitus Type 2 in Adults (DC), Chronic Hypertension (DC) Follow Up With: Fritz Khan MD [Primary Care Provider] - 10/17/16 4:15 pm Sam Donahue DO [Partnered Physician] - Additional Instructions: Follow-up with PCP in 1-2 weeks. You will be due for hemodialysis every Thursday and Thursday. Follow-up with motion picture film examiner in 1 week. Please call for an appointment with [facility]. Your echocardiogram revealed some thickening of the heart muscle which she should follow-up with cardiology in the office within the next 2 weeks. - Diet and Activity Activity: increase activity as tolerated Diet: diabetic diet, low salt diet Hospital course: Please refer to the history and physical, consultation notes, procedure notes and progress notes for further details of this hospitalization. Mr. Walker is a 61 year old male with past medical history significant for essential hypertension and chronic kidney disease stage IV was sent to the hospital by PCP due to elevated blood potassium. He denied any symptoms at the time of admission, particularly chest pain, shortness of breath, syncope, confusion, nausea, vomiting and diarrhea. His creatinine was 9.7 and potassium was 5.6. He was admitted to the hospital and nephrology was consulted. His initial EKG showed peaked T waves and he was given calcium gluconate, insulin and bicarbonate and albuterol. He had hemodialysis the next day. She tolerated this well and he had a tunneled dialysis catheter placed by interventional radiology. He continued hemodialysis. He was assigned an outpatient dialysis slot. He was also noted to have elevation in troponin at 0.23. Serial troponin showed a flat and adynamic profile. He did not have chest pain or shortness of breath. He reports lower extremity swelling which is at his baseline. He had an echocardiogram done which revealed LVOT and LVH. I have discussed the findings with the patient and advised follow-up with cardiology. I have also discussed the findings over the phone with fire boss on-call who recommends tight blood pressure control, increasing beta cherrie as tolerated and close outpatient follow-up. The patient is currently asymptomatic and medically stable for discharge home. I have discussed the discharge plan in the presence of the patient and his they both expressed understanding and agreement with the plan. - Time Spent with Patient Total time spent providing and/or coordinating discharge services: Greater than 30 minutes - Constitutional Vitals: Temp Pulse Resp BP Pulse Ox 97.9 F 90 18 174/67 95 10/11/16 13:00 10/11/16 13:12 10/11/16 13:00 10/11/16 13:12 10/11/16 08:15 General appearance: Present: cooperative, A&O X 3, pleasant, no acute distress, obese, answers questions appropriately - Respiratory Respiratory exam: Present: CTAB. Absent: accessory muscle use, rales, rhonchi, wheezes - Cardiovascular Cardiovascular exam: Present: RRR, +S1, +S2, systolic murmur. Absent: diastolic murmur, gallop, rubs - GI/Abdominal GI/Abdominal exam: Present: normal bowel sounds, soft, no peritoneal signs. Absent: distended, tenderness - Extremities Exam Extremities exam: Present: pedal edema, warm, radial pulses palpable and symetrical. Absent: calf tenderness, cyanotic - Skin Skin exam: Present: dry, intact
== END 2016-10-11 15:17 | disposition home or self-care (01) ==
LOC: EMEROO 16:04 → ICNU 16:04 → SUATTDRO 19:43 → 2ANU 10-09 14:53
PROVIDERS: ADMIT Internal Medicine; ATTEND Internal Medicine

== ENCOUNTER 2019-06-02 08:07 | Observation (INO) ==
[2019-06-02] MEDS ORDERED: Ondansetron 4 MG/2 ML VIAL IVP PRN (12:51)
[2019-06-02] MEDS ORDERED: Naloxone 0.4 MG/ML INJ IVP PRN (12:51)
[2019-06-02] MEDS ORDERED: D5% in Water 1,000 ML IVC PRN (12:54)
[2019-06-02] MEDS ORDERED: Dextrose Gel 15 GM/37.5 ML TUBE PO PRN ×2 (12:54)
[2019-06-02] MEDS ORDERED: *HR* Dextrose 50 % in Water (Syg) 50 ML SYRINGE IVP PRN (12:54)
[2019-06-02 14:20] LABS: Basophils % 0.1 %; Eosinophils # 0.2 K/mcL (0.0-0.6); Eosinophils % 1.8 %; Hematocrit 39.4 % (37.5-50.1); Hemoglobin 12.3 g/dL (12.9-16.9); Immature Granulocytes % 0.4 % (0-4); Lymphocytes % 12.4 %; Mean Corpuscular HGB Conc 31.2 g/dL (31.6-35.5); Mean Corpuscular Hemoglobin 30.8 pg (28.0-33.3); Mean Corpuscular Volume 98.7 fL (83.0-100.0); Mean Platelet Volume 10.2 fL (9.4-12.4); Monocytes # 0.8 K/mcL (0.0-1.3); Monocytes % 10.1 %; Neutrophils # 6.3 K/mcL (1.6-8.9); Platelet Count 274 K/mcL (140-400); Red Blood Count 3.99 M/mcL (4.19-5.50); Red Cell Distribution Width 15.6 % (11.5-14.5); Segmented Neutrophils % 75.2 %; White Blood Count 8.3 K/mcL (4.3-11.1)
[2019-06-02 14:40] LABS: Activated Partial Thrombo Time 67.6 Seconds (26.0-36.0)
[2019-06-02 14:56] LABS: INR 5.1; Prothrombin Time 58.5 Seconds (9.4-12.1)
[2019-06-02 14:57] LABS: Calcium 9.4 mg/dL (8.6-10.3); Potassium 4.9 mEq/L (3.5-5.1)
[2019-06-02 17:02] LABS: Hepatitis B Surface Antibody < 3.10 mIU/mL
[2019-06-02] MEDS: Insulin LISPRO 300 UNITS/3 ML VIAL SQ SCH (17:08)
[2019-06-02] MEDS: *HR* HYDROcodone/Acet 5/325 mg TABLET PO PRN (17:13)
[2019-06-02 17:14] LABS: Hepatitis B Surface Antigen Nonreactive (Nonreactive)
[2019-06-02 18:42] LABS: Troponin I 0.14 ng/mL (< 0.04)
[2019-06-02 22:23] LABS: Prothrombin Time 22.5 Seconds (9.4-12.1)
[2019-06-02] MEDS ORDERED: *HR* Heparin 5,000 UNIT/ML VIAL IVP PRN (22:54)
[2019-06-02] MEDS ORDERED: Heparin 25,000 UNIT/250 ML D5W 25,000 UNIT/250 ML IV.SOLN IVC SCH (23:00)
[2019-06-02 23:20] LABS: Heparin anti-factor XA UFH < 0.04 IU/mL (0.30-0.70)
[2019-06-03] MEDS: *HR* HYDROcodone/Acet 5/325 mg TABLET PO PRN ×3 (01:28→18:43)
[2019-06-03 06:39] LABS: Basophils % 0.4 %; Eosinophils # 0.2 K/mcL (0.0-0.6); Eosinophils % 2.7 %; Hematocrit 32.6 % (37.5-50.1); Immature Granulocytes % 0.4 % (0-4); Lymphocytes # 1.3 K/mcL (0.6-4.6); Mean Corpuscular HGB Conc 31.3 g/dL (31.6-35.5); Mean Corpuscular Hemoglobin 31.2 pg (28.0-33.3); Mean Corpuscular Volume 99.7 fL (83.0-100.0); Mean Platelet Volume 10.7 fL (9.4-12.4); Monocytes # 0.8 K/mcL (0.0-1.3); Monocytes % 10.5 %; Neutrophils # 5.5 K/mcL (1.6-8.9); Platelet Count 229 K/mcL (140-400); Red Blood Count 3.27 M/mcL (4.19-5.50); Red Cell Distribution Width 15.6 % (11.5-14.5); White Blood Count 7.9 K/mcL (4.3-11.1)
[2019-06-03 06:40] LABS: Hemoglobin 10.2 g/dL (12.9-16.9)
[2019-06-03] MEDS ORDERED: 0.9 % Sodium Chloride 250 ML IVC PRN (06:42)
[2019-06-03] MEDS ORDERED: 0.9 % Sodium Chloride 1,000 ML PRIME SCH (06:45)
[2019-06-03 06:47] LABS: INR 1.3; Prothrombin Time 15.1 Seconds (9.4-12.1)
[2019-06-03 07:03] LABS: Calcium 8.6 mg/dL (8.6-10.3)
[2019-06-03] MEDS: Insulin LISPRO 300 UNITS/3 ML VIAL SQ SCH ×3 (07:58→17:29)
[2019-06-03] MEDS: Metoprolol XL (24 HR) Succ 50 MG TAB.ER.24H PO SCH (10:33)
[2019-06-03] MEDS ORDERED: *HR* Heparin 10,000 UNIT/10 ML VIAL ONE (12:26)
[2019-06-03] MEDS ORDERED: 0.9 % Sodium Chloride 1,000 ML ONE ×2 (12:26→12:38)
[2019-06-03] MEDS ORDERED: Isovue-300 150 ML INFUS..BTL ONE (12:27)
[2019-06-03] MEDS ORDERED: *HR* FentaNYL (PF) 100 MCG/2 ML VIAL ONE (12:38)
[2019-06-03] MEDS ORDERED: *HR* Midazolam HCl 2 MG/2 ML VIAL ONE ×2 (12:38→14:22)
[2019-06-03] MEDS ORDERED: Heparin 1,000 UNITS/500 mL 500 ML ONE ×2 (14:13→14:56)
[2019-06-03] MEDS ORDERED: *HR* Atropine Sulfate 1 MG/10 ML SYRINGE ONE (17:13)
[2019-06-04 01:46] LABS: Hematocrit 32.1 % (37.5-50.1); Hemoglobin 10.1 g/dL (12.9-16.9); Mean Corpuscular HGB Conc 31.5 g/dL (31.6-35.5); Mean Corpuscular Hemoglobin 30.7 pg (28.0-33.3); Mean Corpuscular Volume 97.6 fL (83.0-100.0); Mean Platelet Volume 10.3 fL (9.4-12.4); Platelet Count 226 K/mcL (140-400); Red Blood Count 3.29 M/mcL (4.19-5.50); Red Cell Distribution Width 15.5 % (11.5-14.5); White Blood Count 8.1 K/mcL (4.3-11.1)
[2019-06-04 02:03] LABS: Calcium 8.8 mg/dL (8.6-10.3); Potassium 4.4 mEq/L (3.5-5.1)
[2019-06-04] MEDS: *HR* HYDROcodone/Acet 5/325 mg TABLET PO PRN ×2 (05:25→13:20)
[2019-06-04] MEDS ORDERED: SODIUM ZIRCONIUM CYCLOSILICATE 5 GM POWD.PACK PO PRN (07:14)
[2019-06-04] MEDS ORDERED: Furosemide 40 MG TABLET PO SCH (07:15)
[2019-06-04] MEDS ORDERED: amLODIPine 5 MG TABLET PO SCH (09:00)
[2019-06-04] MEDS: Metoprolol XL (24 HR) Succ 50 MG TAB.ER.24H PO SCH (09:18)
[2019-06-04] MEDS: Insulin LISPRO 300 UNITS/3 ML VIAL SQ SCH ×3 (09:18→16:57)
[2019-06-04] MEDS ORDERED: *HR* Heparin 5,000 UNIT/ML VIAL IVP PRN ×2 (09:38)
[2019-06-04] MEDS ORDERED: *HR* Heparin 5,000 UNIT/ML VIAL IVP ONE (09:38)
[2019-06-04] MEDS ORDERED: Heparin 25,000 UNIT/250 ML D5W 25,000 UNIT/250 ML IV.SOLN IVC SCH (09:45)
[2019-06-04] MEDS: Acetaminophen 325 MG TABLET PO PRN ×2 (10:24→16:55)
[2019-06-04 20:20] VITALS: BP 151/74
== END 2019-06-04 20:43 | disposition short-term general hospital (02) ==
LOC: 2ANU → 2NNU 06-03 16:13
PROVIDERS: ADMIT Internal Medicine; ATTEND Internal Medicine

== ENCOUNTER 2020-01-07 05:53 | Inpatient (IN) ==
[2020-01-07] MEDS ORDERED: Calcium Gluconate 1gm/50mL 1 GM/50 ML BAG IVPB ONE (06:04)
[2020-01-07] MEDS ORDERED: Sodium Bicarbonate 50 MEQ/50 ML VIAL ONE ×2 (06:04→15:50)
[2020-01-07] MEDS ORDERED: Sodium Bicarbonate 50 MEQ/50 ML VIAL IVP ONE ×4 (06:11→15:51)
[2020-01-07] MEDS ORDERED: 0.9 % Sodium Chloride 500 ML IVC ONE (06:28)
[2020-01-07 06:33] LABS: Basophils % 0.3 %; Eosinophils % 0.1 %; Hematocrit 24.4 % (37.5-50.1); Hemoglobin 7.3 g/dL (12.9-16.9); Immature Granulocytes % 2.4 % (0-4); Lymphocytes # 1.7 K/mcL (0.6-4.6); Lymphocytes % 11.9 %; Mean Corpuscular HGB Conc 29.9 g/dL (31.6-35.5); Mean Platelet Volume 11.2 fL (9.4-12.4); Monocytes # 1.2 K/mcL (0.0-1.3); Monocytes % 8.1 %; Neutrophils # 11.1 K/mcL (1.6-8.9); Nucleated Red Blood Cells 0.1 /100 WBC (0); Platelet Count 353 K/mcL (140-400); Red Blood Count 2.28 M/mcL (4.19-5.50); Red Cell Distribution Width 15.7 % (11.5-14.5); Segmented Neutrophils % 77.2 %; White Blood Count 14.4 K/mcL (4.3-11.1)
[2020-01-07 06:38] LABS: INR 2.4; Prothrombin Time 27.7 Seconds (9.4-12.1)
[2020-01-07] MEDS: Norepinephrine 4 MG in 0.9 % Sodium Chloride 250 ML IVC SCH ×2 (06:42→12:05)
[2020-01-07] MEDS ORDERED: Pantoprazole 40 MG VIAL IVP ONE (06:56)
[2020-01-07] MEDS ORDERED: Insulin Human Regular 10 UNIT in 0.9 % Sodium Chloride 10 ML IV ONE (06:56)
[2020-01-07] MEDS ORDERED: *HR* Dextrose 50 % in Water (Vial) 50 ML VIAL IVP ONE (06:56)
[2020-01-07 06:58] LABS: Calcium 12.2 mg/dL (8.6-10.3); Troponin I 5.83 ng/mL (< 0.04)
[2020-01-07] MEDS ORDERED: Isovue-370 500 ML BOTTLE IVP ONE (07:11)
[2020-01-07] MEDS ORDERED: SODIUM CHLORIDE 0.9% SQ ONE (07:30)
[2020-01-07] MEDS ORDERED: TERBUTALINE SQ ONE (07:30)
[2020-01-07] MEDS ORDERED: WATER FOR INJ IVPB ONE ×2 (07:34→08:15)
[2020-01-07] MEDS ORDERED: Albuterol 2.5 MG/3 ML NEBULIZER IH ONE (07:34)
[2020-01-07] MEDS ORDERED: [UNRECOGNIZED DRUG - OTHER] IVPB ONE (07:34)
[2020-01-07] MEDS ORDERED: HUM PROTHROMBIN CPLX IVPB ONE ×2 (07:34→08:15)
[2020-01-07] MEDS ORDERED: cefTRIAXone 1,000 MG in 0.9 % Sodium Chloride Mini Bag 100 ML IVPB ONE (07:56)
[2020-01-07] MEDS ORDERED: 0.9 % Sodium Chloride 250 ML ONE (08:05)
[2020-01-07] MEDS ORDERED: Vancomycin 1,250 MG/262.5 ML IV.SOLN IVPB ONE ×2 (08:13→12:00)
[2020-01-07] MEDS ORDERED: [UNRECOGNIZED DRUG - OTHER] IVPB ONE (08:15)
[2020-01-07 09:03] LABS: Adenovirus Not Detected (Not Detect); Bordetella Pertussis Not Detected (Not Detect); Chlamydophila pneumoniae Not Detected (Not Detect); Coronavirus 229E Not Detected (Not Detect); Coronavirus HKU1 Not Detected (Not Detect); Coronavirus NL63 Not Detected (Not Detect); Coronavirus OC43 Not Detected (Not Detect); Human Metapneumovirus Not Detected (Not Detect); Human Rhinovirus/Enterovirus Not Detected (Not Detect); Influenza A Subtype 2009 H1 Not Detected (Not Detect); Influenza B Not Detected (Not Detect); Mycoplasma pneumoniae Not Detected (Not Detect); Parainfluenza Virus 1 Not Detected (Not Detect); Parainfluenza Virus 2 Not Detected (Not Detect); Parainfluenza Virus 3 Not Detected (Not Detect); Parainfluenza Virus 4 Not Detected (Not Detect); Respiratory Syncytial Virus Not Detected (Not Detect); SARS-CoV-2 Not Detected (Not Detect)
[2020-01-07] MEDS ORDERED: Metoclopramide 10 MG/2 ML VIAL IVP ONE (09:18)
[2020-01-07] MEDS: Pantoprazole 40 MG in 0.9 % Sodium Chloride Mini Bag 100 ML IVC SCH ×2 (09:36→14:14)
[2020-01-07] MEDS ORDERED: Naloxone 0.4 MG/ML INJ IVP PRN (11:10)
[2020-01-07] MEDS ORDERED: Norepinephrine 4 MG/254 ML IV.SOLN IVC SCH (11:15)
[2020-01-07] MEDS ORDERED: 0.9 % Sodium Chloride 1,000 ML PRIME ONE ×2 (11:23)
[2020-01-07] MEDS ORDERED: *HR* Heparin 5,000 UNIT/ML VIAL CRRT PRN (11:23)
[2020-01-07] MEDS ORDERED: *HR* Alteplase (Cathflo) 2 MG VIAL IVP PRN (11:23)
[2020-01-07] MEDS ORDERED: Perflutren Lipid Microsphere 1.3 ML in 0.9 % Sodium Chloride 8.7 ML IVP PRN (11:26)
[2020-01-07] MEDS ORDERED: 0.9 % Sodium Chloride 1,000 ML PRIME SCH (11:30)
[2020-01-07] MEDS ORDERED: PrismaSATE BGK 4/2.5 5,000 ML CRRT SCH ×2 (11:30)
[2020-01-07 11:48] LABS: Basophils % 0.1 %; Eosinophils % 0.1 %; Hematocrit 26.3 % (37.5-50.1); Hemoglobin 7.9 g/dL (12.9-16.9); Lymphocytes # 1.3 K/mcL (0.6-4.6); Lymphocytes % 6.6 %; Mean Corpuscular Hemoglobin 31.5 pg (28.0-33.3); Mean Corpuscular Volume 104.8 fL (83.0-100.0); Mean Platelet Volume 11.2 fL (9.4-12.4); Monocytes # 1.6 K/mcL (0.0-1.3); Monocytes % 8.4 %; Nucleated Red Blood Cells 0.5 /100 WBC (0); Platelet Count 247 K/mcL (140-400); Red Blood Count 2.51 M/mcL (4.19-5.50); Red Cell Distribution Width 16.9 % (11.5-14.5); Segmented Neutrophils % 83.8 %
[2020-01-07 11:55] LABS: INR 1.6; Prothrombin Time 17.8 Seconds (9.4-12.1)
[2020-01-07] MEDS ORDERED: EPINEPHrine 1 MG in D5% in Water 250 ML IVC SCH (12:00)
[2020-01-07] MEDS ORDERED: Vancomycin 1,250 MG/262.5 ML IV.SOLN IVPB SCH (12:00)
[2020-01-07] MEDS ORDERED: Piperacillin/Tazobactam 3.375 GM in 0.9 % Sodium Chloride Mini Bag 100 ML IVPB SCH ×2 (12:00→14:00)
[2020-01-07] MEDS ORDERED: 0.9 % Sodium Chloride 500 ML ONE (12:10)
[2020-01-07 12:12] LABS: ABG Base Excess -11 mEq/L (-2 to 3); ABG HCO3 15 mEq/L (21-27); ABG Oxygen Saturation 100 % (95-98); ABG PCO2 31 mmHg (35-45); ABG PH 7.28 pH Units (7.32-7.45); ABG PO2 250 mmHg (85-104); ABG TCO2 15 mEq/L (20-26)
[2020-01-07 12:22] LABS: Potassium 4.2 mEq/L (3.5-5.1); Troponin I 22.55 ng/mL (< 0.04)
[2020-01-07 12:23] LABS: Albumin 3.5 g/dL (3.5-5.7); Albumin/Globulin Ratio 1.8 (1.1-2.2); Bilirubin,Direct 0.4 mg/dL (0.0-0.2); Bilirubin,Indirect 0.5 mg/dL (0.0-1.0); Bilirubin,Total 0.9 mg/dL (0.3-1.0); Calcium 11.4 mg/dL (8.6-10.3); Globulin 1.9 g/dL (2.4-3.5); Magnesium 2.8 mg/dL (1.6-2.6); Phosphorous 6.4 mg/dL (2.7-4.5); Total Protein 5.4 g/dL (6.4-8.9)
[2020-01-07] MEDS ORDERED: *HR* Dextrose 50 % in Water (Vial) 50 ML VIAL IVP PRN (12:26)
[2020-01-07] MEDS ORDERED: Dextrose Gel 15 GM/37.5 ML TUBE PO PRN ×2 (12:26)
[2020-01-07] MEDS ORDERED: D5% in Water 1,000 ML IVC PRN (12:26)
[2020-01-07 12:35] LABS: VBG Ionized Calcium 1.36 mmol/L (1.15-1.35)
[2020-01-07 12:40] LABS: Hepatitis B Surface Antibody < 3.10 mIU/mL
[2020-01-07] MEDS ORDERED: Hydrocortisone Sodium Succ 100 MG/2 ML VIAL IVP SCH (12:45)
[2020-01-07] MEDS ORDERED: Thiamine (B-1) 100 MG in 0.9 % Sodium Chloride 50 ML IVPB SCH (12:45)
[2020-01-07] MEDS ORDERED: Vasopressin 40 UNIT in D5% in Water 100 ML IVC SCH (12:45)
[2020-01-07 12:50] LABS: Hepatitis B Surface Antigen Nonreactive (Nonreactive)
[2020-01-07] MEDS ORDERED: FentaNYL (PF) 1,000 MCG/100 ML IV.SOLN IVC SCH (13:30)
[2020-01-07] MEDS ORDERED: Midazolam HCl 50 MG/100 ML IV.SOLN IVC SCH (13:30)
[2020-01-07] MEDS ORDERED: Pantoprazole 40 MG VIAL IVP SCH (13:45)
[2020-01-07] MEDS ORDERED: Artificial Tears SOLN 15 ML BOTTLE BOTH EYES PRN (13:45)
[2020-01-07] MEDS ORDERED: *HR* Midazolam HCl 5 MG/5 ML VIAL IVP ONE (13:47)
[2020-01-07] MEDS: Calcium Chloride 1,000 MG in 0.9 % Sodium Chloride 100 ML IVPB SCH ×2 (13:50→14:57)
[2020-01-07] MEDS ORDERED: *HR* Heparin 5,000 UNIT/ML VIAL IVP PRN ×2 (14:16)
[2020-01-07] MEDS ORDERED: Heparin 25,000UNIT/250ML 1/2NS 25,000 UNIT/250 ML IV.SOLN IVC SCH (14:30)
[2020-01-07 14:55] LABS: ABG Base Excess -16 mEq/L (-2 to 3); ABG HCO3 14 mEq/L (21-27); ABG Oxygen Saturation 100 % (95-98); ABG PCO2 47 mmHg (35-45); ABG PH 7.07 pH Units (7.32-7.45); ABG PO2 411 mmHg (85-104); ABG TCO2 15 mEq/L (20-26); Blood Gas Modality ASSIST CONTROL; Blood Gas VT 500 cc
[2020-01-07] MEDS ORDERED: Norepinephrine 8 MG in 0.9 % Sodium Chloride 250 ML IVC SCH (15:45)
[2020-01-07] MEDS ORDERED: Artificial Tears SOLN 15 ML BOTTLE BOTH EYES SCH (16:00)
[2020-01-07] MEDS ORDERED: Insulin LISPRO 300 UNITS/3 ML VIAL SQ SCH (16:00)
[2020-01-07 16:06] VITALS: BP 108/48
[2020-01-07] MEDS ORDERED: Amiodarone Premix 360 MG/200 ML BAG IVC ONE (16:08)
[2020-01-07] MEDS ORDERED: Amiodarone Premix 150 MG/100 ML BAG IVPB ONE (16:08)
[2020-01-07] MEDS ORDERED: Amiodarone Premix 360 MG/200 ML BAG IVC SCH (16:15)
[2020-01-07] MEDS ORDERED: Chlorhexidine Rinse 15 ML MOUTHWASH MM SCH (21:00)
[2020-01-07] MEDS ORDERED: Budesonide/Formoterol 160/4.5 1 PUFF INH IH SCH (22:00)
== END 2020-01-07 16:15 | disposition short-term general hospital (02) | DRG 871 ==
LOC: EMEROOARM 05:53 → ICNU 09:51
PROVIDERS: ADMIT Pediatrics; ATTEND Pediatrics